=== PATIENT | female | born 2000 | race Caucasian/White ===

== ENCOUNTER 2021-02-16 02:36 | Day surgery (SDC) | payer BC, SELFPAY ==
[2021-02-09 12:14] VITALS: BMI 23.8
--- NOTE | 2021-02-09 12:24 | PC.NURSE ---
Report to the Outpatient Waiting Room, entrance under the green pavilion located off [facility], at time 0915 on date 02/16/21. OR Time: 1115. - You and your visitor will be asked a series of questions to screen for COVID 19 for your protection. - A mask is required within the hospital. - Only one visitor is allowed at this time. Patient visitors will be guided where to wait when not with patient. Preoperative COVID Testing Requirements: 02/13 - SEND RESULTS TO [email or web address] No COVID Test needed if: (proof is required; if not received patient will have Rapid Test prior to entry) - Patient has received COVID Vaccine at least 14 days prior to procedure date or - Patient has positive COVID test result within last 90 days of surgery date. COVID Test needed if above criteria is not met If not COVID vaccinated a COVID test must be conducted within 72 hours of surgery and patient is asked to isolate self from time of testing until procedure. You will go to the [facility] for your COVID testing. The [facility] is located at the corner of [address] [facility]. You will only be called if COVID results are positive and your surgeon may reschedule your elective surgery date. Patients may have clear liquids (water, carbonated beverages, clear teas, apple juice) until 3 hours prior to surgery with a maximum of 20 ounces. - No food from midnight until time of surgery - Infants may have breast milk until 4 hours before surgery, infant formula 6 hours prior to surgery. - Children will be allowed to drink immediately following surgery. If applicable, please bring a bottle or sippy cup to assist with drinking. Juice, water, soda, and popsicles are readily available. For infants on formula, please bring formula the day of surgery. Pacifiers are allowed. Take the following medications with a SIP of water the morning of surgery: CONTROL PILL Medications to discontinue per physician: N/A Date to take last dose: N/A Please no make-up, nail mauritian, hairspray, perfume, deodorant, or body powder the day of surgery. No jewelry (including any body piercings) or valuables the day of surgery, leave them at home. Please take a shower or bath the night before, or the morning of, surgery with an antibacterial soap. Wear comfortable, loose fitting clothing. Children are encouraged to wear pajamas. - Jewelry must be removed prior to entering the operating room. Rings and piercings that are not removed may be cut off. - The hospital will not accept responsibility for valuables. - Please leave all valuables, including medications, at home the day of surgery. If you are going home after surgery, a licensed jitney driver must drive you home. - NO public transportation without another adult. - We recommend that an adult stay with you for 24 hours following discharge. - We also recommend that you do not drive, make important decision, drink alcoholic beverages, or take any drugs that were not prescribed by your health care provider for at least 24 hours after your discharge time. For Pediatric surgeries, we recommend two adults accompany the child home (only one inside the building at this time). Follow any additional instructions given to you from your surgeon. Telephone instructions given to REYES CORNELL and asked if any additional questions and then verbalized understanding. Patient advised to call surgeon office or pre surgery nurse liaison [phone] if any additional questions.
--- NOTE | 2021-02-16 10:28 | PM.IMHP ---
H&P: HPI History of Present Illness Date/Time: 02/16/21 10:28 Chief Complaint: Nasal dyspnea Narrative: chronic nasal dyspnea Review of Systems Review of Systems: All systems reviewed & are unremarkable except as noted in HPI and below PMFSH Social History Social History Smoking status: Never smoker Alcohol intake: current Alcohol use details: MAINLY ON WEEKENDS Substance use: never Substance use type: does not use Spiritual care concerns: No Meds Home Medications and Allergies Home Medications Medication Instructions Recorded Confirmed Type norgestrel-ethinyl estradiol 1 tablet PO DAILY 02/09/21 02/09/21 History [Che (28)] Allergies Allergy/AdvReac Type Severity Reaction Status Date / Time Penicillins Allergy Unknown Hives Verified 02/09/21 12:14 Exam Narrative: deviated nasal septum, turbinate hypetrophy, rest of exam wnl Assessment and Plan Assessment and plan (1) Deviated septum: Code(s): J34.2 - Deviated nasal septum Status: Acute Assessment and Plan: Terri here for septoplasty and turbinoplasty for chronic nasal dyspnea. r/b/a reviewed pt understands and agrees to proceed. Refer to outpt H&P for full details.
[2021-02-16 10:30] VITALS: BP 124/55; PULSE 67; RESP 18; TEMP 36.6; O2SAT 100
--- NOTE | 2021-02-16 10:30 | WPDHPUPDATE1 ---
History and Physical Update Update Date/Time: 02/16/21 10:30 History and Physical has been reviewed, including an updated exam of the patient. There are NO changes in the patient's condition. Risks, benefits, and alternatives have been discussed and questions answered. Patient agrees to proceed with procedure.
[2021-02-16] MEDS: ACETAMINOPHEN 500 MG TABLET 1000 MG PO (10:31)
[2021-02-16] MEDS: LACTATED RINGERS 1,000 ML 30 ML IV CONT (10:32)
[2021-02-16] MEDS: OXYMETAZOLINE HCL 0.05% NAS 15 ML BTL (*BKC) 1 SPRAY NASAL (10:32)
--- NOTE | 2021-02-16 10:44 | WPDANESEPPF ---
Anes - Initial Pre Proc Eval Procedure: Operation Date: 02/16/21 11:15 Proposed Procedures p Septoplasty - Sebastián Can MD s Bilateral Turbinate Reduction - Sebastián Can MD Date/Time: 02/16/21 10:44 Surgeon: Sebastián Can MD Pre Op Diagnosis: deviated septum, turbinate hypertrophy Patient Data Age: 20 Gender: F Height: 1.57 m Weight: 59 kg Allergies Allergy/AdvReac Type Severity Reaction Status Date / Time Penicillins Allergy Unknown Hives Verified 02/09/21 12:14 Home Medications Medication Instructions Recorded Confirmed Type norgestrel-ethinyl estradiol 1 tablet PO DAILY 02/09/21 02/09/21 History [Che (28)] Patient hx anesthesia problems: other (motion sickness) Family hx anesthesia problems: none Results Review: All pre-operative results and documents have been reviewed as part of the pre-operative evaluation. PMFSH Past Medical History Medical History Anxiety Depression Social History Social History Smoking status: Never smoker Alcohol intake: current Alcohol use details: MAINLY ON WEEKENDS Substance use: never Substance use type: does not use Spiritual care concerns: No Anes - Eval Final PreProcedure Day of Procedure 02/16/21 10:44 Patient weight: normal Heart: regular rate and rhythm Lungs: clear to auscultation Airway: Mallampati scale class II Neurological: alert and oriented Last oral intake: >/= 8 hours ASA classification: II Emergent: no Anesthetic plan: proceed Anesthesia type and monitoring: general ETT and standard monitoring Results Review: All pre-operative results and documents have been reviewed as part of the pre-operative evaluation. Informed Consent: The patient's anesthetic plan and its attendant risks and benefits were discussed with the patient/family/POA. Questions were solicited and answers provided to the satisfaction of the patient/family/POA.
[2021-02-16] MEDS: SCOPOLAMINE 1.5 MG PATCH TRANSDERM (10:48)
[2021-02-16] MEDS: ceFAZolin 2 GM/D5W 50 ML 2 GM/50 ML BAG IVPB (10:51)
[2021-02-16] MEDS: LIDO 1%/EPINEPHRINE 1:100,000 50 ML VIAL INFILTRATE (11:38)
[2021-02-16] MEDS: MUPIROCIN 2% OINT 22 GM TUBE 1 APPLIC EACH NARE (11:38)
--- NOTE | 2021-02-16 11:39 | W.PM.PROC2 ---
Procedure Note - Detailed Date of Procedure 02/16/21 Pre-op Diagnosis deviated septum, turbinate hypertrophy Post-op Diagnosis same Procedure Performed Revision septoplasty and bilateral inferior turbinoplasty Surgeon Sebastián Can MD Anesthesia general Indications Chronic nasal dyspnea Findings Left septal deviation and bilateral turbinate hypertrophy Description of Procedure After obtaining informed consent and proper site verification the patient was brought to the operating room and placed on the operating table in the supine position. They were placed under general endotracheal anesthesia by the anesthesia provider. The patient was then draped in standard fashion for septoplasty and turbinoplasty. A timeout was performed and the correct patient and procedure were verified. The nasal cavity was injected with 1% lidocaine with 1-100,000 epinephrine and packed with afrin-soaked cottonoid pledgets. She had previous limited septoplasty, turbinate reduction and maxillary antrostomy but had persistent left septal deviation. ? Attention was then directed to the nasal septum. A hemitransfixion incision was made in the left caudal septum and a mucoperichondrial flap was elevated in the usual fashion. There was a small area of previously resected cartilage but she still had significant remaining superior and caudal deviated cartilage and bone that was resected. The flap was elevated under endoscopic visualization and the remainder of the case was performed with endoscopic assistance. Using a D-knife, an incision was made through the cartilaginous septum with care to preserve the appropriate caudal and dorsal ?L-strut? of cartilage. The cartilage was then disarticulated from the bony-cartilaginous junction and the deviated cartilage was removed. Further deviated bone and cartilage was removed from the maxillary crest and posterior bony septum with care to avoid injury to the mucoperichondrial flap using a combination of dissection and Stanberry-James forceps. Once this was completed, the hemitransfixion incision was closed using simple interrupted 4-0 chromic suture. A quilting stitch to reapproximate the mucoperichondrial flaps was then placed using 4-0 plain gut suture on a Ryan needle. ? Next attention was directed to the turbinates. Using a 0? telescope and 2mm turbinate blade microdebrider, a stab incision was made in the anterior face of the turbinate and dissection was carried posterior to perform submucosal resection. Next the turbinate was outfractured using a blunt instrument. A similar procedure was then performed on the right-hand side without difficulty. Dutch splints covered in mupirocin ointment were placed in the nasal cavity and secured to the membranous septum using a 3-0 Nylon suture. ?The patient was awakened from general anesthesia extubated in the operating room, and transported to the recovery room in stable condition without complication. Estimated Blood Loss 10 Drains No Packing Yes (rust splints) Pathology none sent Complications No immediate complications Condition stable Disposition PACU
[2021-02-16 11:45] VITALS: BP 116/63; PULSE 86; RESP 14; TEMP 36.1; O2SAT 100
[2021-02-16 12:00] VITALS: BP 116/70; PULSE 77; RESP 17; O2SAT 100
[2021-02-16 12:15] VITALS: BP 116/71; PULSE 72; RESP 18; O2SAT 99
[2021-02-16 12:25] VITALS: BP 122/65; PULSE 68; RESP 16
[2021-02-16] MEDS: ONDANSETRON INJ 4 MG/2 ML VIAL IV PUSH (12:50)
[2021-02-16 12:55] VITALS: BP 122/65; PULSE 64; RESP 16
== END 2021-02-16 13:25 | disposition home or self-care (01) ==
PROVIDERS: Visit Provider Otolaryngology
PROC: (CPT 30520; principal; 2021-02-16 11:15)
PROC: (CPT 30140; 2021-02-16 11:15)
DX: J34.2 Deviated nasal septum (principal); J34.3 Hypertrophy of nasal turbinates
CPT/HCPCS: 30140; 30520; A9270; J0330; J0690; J1100; J2250; J2405; J2704; J7120

== ENCOUNTER 2021-02-16 09:01 | Outpatient (CLI) | payer BC, SELFPAY ==
[2021-02-16 09:32] LABS: EDCOVIDSCREEN Negative (Negative)
== END 2021-02-16 09:02 | disposition home or self-care (01) ==
LOC: ANHSURGERY 09:04
PROVIDERS: Visit Provider Otolaryngology
DX: Z01.818 Encounter for other preprocedural examination (principal); Z20.822 Contact with and (suspected) exposure to COVID-19
CPT/HCPCS: 87426; C9803